=== PATIENT | male | born 1955 | race Caucasian/White ===

== ENCOUNTER 2022-08-05 12:15 | Outpatient (CLI) | payer MEDICARE, OTHER | END 2022-08-05 12:30 | disposition home or self-care (01) | LOC: LAB.N 12:15 | PROVIDERS: ATTEND Registered Nurse | DX: R30.0 Dysuria (principal) | CPT/HCPCS: 87086; 87181 ==

== ENCOUNTER 2023-02-25 16:32 | Emergency (ER) | payer MEDICARE, OTHER ==
[2023-02-25 17:31] LABS: BASOPHILS % (AUTO) 0.3 %; EOSINOPHILS # (AUTO) 0.1 10^3/uL (0.0-0.7); EOSINOPHILS % (AUTO) 2.3 %; HCT - HEMATOCRIT 35.1 % (42.0-52.0); HGB - HEMOGLOBIN 11.9 g/dL (14.0-18.0); LYMPHOCYTES # (AUTO) 0.5 10^3/uL (1.5-3.5); LYMPHOCYTES % (AUTO) 12.3 %; MEAN CORPUSCULAR HEMOGLOBIN 30.7 pg (27.0-31.0); MEAN CORPUSCULAR HGB CONC 33.9 g/dL (32.0-36.0); MEAN CORPUSCULAR VOLUME 90.5 fL (80.0-94.0); MEAN PLATELET VOLUME 11.2 fL (7.4-11.4); MONOCYTES # (AUTO) 0.7 10^3/uL (0.0-1.0); MONOCYTES % (AUTO) 16.3 %; NEUTROPHILS # (AUTO) 2.7 10^3/uL (1.5-6.6); NEUTROPHILS % (AUTO) 68.5 %; PLT - PLATELET COUNT 59 10^3/uL (130-450); RED BLOOD COUNT 3.88 10^6/uL (4.70-6.10); RED CELL DISTRIBUTION WIDTH 15.3 % (12.0-15.0)
[2023-02-25 17:46] LABS: ALBUMIN 3.6 g/dL (3.2-5.5); ALBUMIN/GLOBULIN RATIO 1.5 (1.0-2.2); BILIRUBIN,TOTAL 1.4 mg/dL (0.2-1.0); CALCIUM 9.4 mg/dL (8.5-10.3); CREATININE 0.7 mg/dL (0.6-1.3); POTASSIUM 4.2 mmol/L (3.5-4.5)
[2023-02-25] MEDS ORDERED: SODIUM CHLORIDE 0.9% 1,000 ML IV STA ×2 (18:52)
[2023-02-25 19:09] LABS: BILIRUBIN,URINE NEGATIVE (NEGATIVE); GLUCOSE, URINE (UA) >=1000 mg/dL (NEGATIVE); KETONES,URINE (UA) NEGATIVE (NEGATIVE); LEUKOCYTE ESTERASE, URINE NEGATIVE (NEGATIVE); NITRITE,URINE NEGATIVE (NEGATIVE); OCCULT BLOOD,URINE NEGATIVE (NEGATIVE); PH,URINE 5.5 PH (5.0-7.5); PROTEIN,URINE NEGATIVE (NEGATIVE); UROBILINOGEN,URINE 0.2 (NORMAL) E.U./dL (NORMAL)
[2023-02-25 19:12] LABS: CLARITY,URINE CLEAR (CLEAR)
--- NOTE | 2023-02-25 21:25 | ED Physician Documentation ---
History of Present Illness - Stated complaint Stated Complaint: HIGH BLOOD SUGAR - Chief complaint Chief Complaint: General - History obtained from History obtained from: Patient, Family - Additonal information Additional information: 67-year-old male with history of hemochromatosis, insulin-dependent diabetes, GISELLA presents by private vehicle from home for elevated blood glucose readings. Patient has had elevated glucose measurements for the last 3 to 4 days. Family also states that the patient has seemed "loopy", but do state that he has memory issues at baseline. Patient was previously taken off of insulin after starting the medication Ozempic, however several weeks ago the patient stopped taking Ozempic because he could not tolerate the side effects, and did not restart insulin. also reports concern that patient may have elevated ammonia level. He occasionally gets elevated ammonia due to his hemochromatosis, but he has not been taking his lactulose as prescribed. Review of Systems Constitutional: denies: Fever, Chills GI: denies: Abdominal Pain, Nausea, Vomiting : denies: Dysuria, Frequency, Hesitancy Skin: denies: Rash, Lesions, Abrasion (s) Musculoskeletal: denies: Neck pain, Back pain, Extremity pain, Joint pain Endocrine: reports: Polydypsia, Polyuria. denies: Polyphagia PD PAST MEDICAL HISTORY - Allergies Allergies/Adverse Reactions: Allergies Allergy/AdvReac Type Severity Reaction Status Date / Time Penicillins Allergy Rash Verified 02/25/23 16:49 Sulfa (Sulfonamide Allergy Rash Verified 02/25/23 16:49 Antibiotics) PD ED PE NORMAL - Vitals Vital signs reviewed: Yes - General General: Alert and oriented X 3, No acute distress, Well developed/nourished - HEENT HEENT: Atraumatic - Neck Neck: Supple, no meningeal sign - Cardiac Cardiac: RRR, Strong equal pulses - Respiratory Respiratory: No respiratory distress - Abdomen Abdomen: Soft, Non tender, Non distended - Derm Derm: Normal color, Warm and dry, No rash - Extremities Extremities: No deformity, No tenderness to palpate, Normal ROM s pain - Neuro Neuro: Alert and oriented X 3, spool tender 2-12 intact, No motor deficit, Normal speech - Psych Psych: Normal mood, Normal affect Results - Vitals Vitals: Vital Signs - 24 hr 02/25/23 02/25/23 02/25/23 16:38 19:34 21:00 Temperature 37.5 C Heart Rate 90 79 81 Respiratory 16 18 16 Rate Blood Pressure 131/55 H 132/69 H 144/71 H O2 Saturation 96 97 98 Oxygen O2 Source Room air - Labs Labs: Laboratory Tests 02/25/23 02/25/23 02/25/23 16:44 17:15 17:25 WBC 4.0 L RBC 3.88 L Hgb 11.9 L Hct 35.1 L MCV 90.5 MCH 30.7 MCHC 33.9 RDW 15.3 H Plt Count 59 L MPV 11.2 Neut # (Auto) 2.7 Lymph # (Auto) 0.5 L [place] # (Auto) 0.7 Eos # (Auto) 0.1 Baso # (Auto) 0.0 Absolute Nucleated RBC 0.00 Nucleated RBC % 0.0 Sodium Potassium Chloride Carbon Dioxide Anion Gap BUN Creatinine Estimated GFR (MDRD) Glucose POC Whole Bld Glucose 397 H Calcium Total Bilirubin AST ALT Alkaline Phosphatase Ammonia Total Protein Albumin Globulin Albumin/Globulin Ratio Lipase Urine Color YELLOW Urine Clarity CLEAR Urine pH 5.5 Ur Specific [place] 1.010 Urine Protein NEGATIVE Urine Glucose (UA) >=1000 H Urine Ketones NEGATIVE Urine Occult Blood NEGATIVE Urine Nitrite NEGATIVE Urine Bilirubin NEGATIVE Urine Urobilinogen 0.2 (NORMAL) Ur Leukocyte Esterase NEGATIVE Ur Microscopic Review NOT INDICATED Urine Culture Comments NOT INDICATED 02/25/23 02/25/23 02/25/23 17:25 18:58 21:23 WBC RBC Hgb Hct MCV MCH MCHC RDW Plt Count MPV Neut # (Auto) Lymph # (Auto) [place] # (Auto) Eos # (Auto) Baso # (Auto) Absolute Nucleated RBC Nucleated RBC % Sodium 130 L Potassium 4.2 Chloride 97 L Carbon Dioxide 28 Anion Gap 5.0 L BUN 13 Creatinine 0.7 Estimated GFR (MDRD) 113 Glucose 420 H POC Whole Bld Glucose 249 H Calcium 9.4 Total Bilirubin 1.4 H AST 26 ALT 29 Alkaline Phosphatase 75 Ammonia 34.0 Total Protein 6.0 L Albumin 3.6 Globulin 2.4 Albumin/Globulin Ratio 1.5 Lipase 19 Urine Color Urine Clarity Urine pH Ur Specific [place] Urine Protein Urine Glucose (UA) Urine Ketones Urine Occult Blood Urine Nitrite Urine Bilirubin Urine Urobilinogen Ur Leukocyte Esterase Ur Microscopic Review Urine Culture Comments PD Medical Decision Making - ED course Complexity details: reviewed results, re-evaluated patient, considered differential, d/w patient ED course: Elevated blood glucose readings, possible abnormal behavior noted by family members at home. Patient is currently alert and oriented x3, he endorses that he is not compliant with many of his medications and has been noncompliant with a diabetic diet. Accu-Chek elevated in triage. Laboratory work confirms elevated glucose without anion gap elevation. Urine with glucosuria, no evidence of infection. No elevation in white blood cell count indicate underlying infection. Ammonia level within normal limits. Blood glucose decreased after IV fluids. Patient counseled to restart insulin since he is no longer taking Ozempic. He was encouraged to comply with his nightly CPAP and to take his lactulose as prescribed. Patient has a primary care appointment on Wednesday. He states that he has enough insulin at home to get him through the weekend and does not need a refill. Departure - Departure Disposition: 01 Home, Self Care Clinical Impression: Hyperglycemia, Noncompliance w/medication treatment due to intermit use of medication Condition: Stable Instructions: Blood Sugar Check, Diabetes Carbs Forms: PCP List
[2023-02-25 21:26] VITALS: BP 144/71; O2SAT 98
== END 2023-02-25 21:30 | disposition home or self-care (01) ==
LOC: ED 16:32
DX: E11.65 Type 2 diabetes mellitus with hyperglycemia (principal); Z91.148 Patient's other noncompliance with medication regimen for other reason
CPT/HCPCS: 36415; 80053; 81001; 81003; 82140; 83690; 85025; 87086; 99283

== ENCOUNTER 2024-01-06 13:52 | Emergency (ER) | payer MEDICARE, OTHER ==
[2024-01-06 14:14] VITALS: O2SAT 97
[2024-01-06 14:27] LABS: BILIRUBIN,URINE NEGATIVE (NEGATIVE); GLUCOSE, URINE (UA) >=1000 mg/dL (NEGATIVE); KETONES,URINE (UA) TRACE mg/dL (NEGATIVE); LEUKOCYTE ESTERASE, URINE NEGATIVE (NEGATIVE); NITRITE,URINE NEGATIVE (NEGATIVE); OCCULT BLOOD,URINE NEGATIVE (NEGATIVE); PROTEIN,URINE NEGATIVE (NEGATIVE); UROBILINOGEN,URINE 0.2 (NORMAL) E.U./dL (NORMAL)
[2024-01-06 14:28] LABS: CLARITY,URINE CLEAR (CLEAR)
[2024-01-06 14:37] LABS: BASOPHILS % (AUTO) 0.5 %; EOSINOPHILS # (AUTO) 0.1 10^3/uL (0.0-0.7); EOSINOPHILS % (AUTO) 2.2 %; HGB - HEMOGLOBIN 11.9 g/dL (14.0-18.0); LYMPHOCYTES # (AUTO) 0.5 10^3/uL (1.5-3.5); LYMPHOCYTES % (AUTO) 14.5 %; MEAN CORPUSCULAR HEMOGLOBIN 29.4 pg (27.0-31.0); MEAN CORPUSCULAR HGB CONC 32.2 g/dL (32.0-36.0); MEAN CORPUSCULAR VOLUME 91.4 fL (80.0-94.0); MEAN PLATELET VOLUME 11.9 fL (7.4-11.4); MONOCYTES # (AUTO) 0.5 10^3/uL (0.0-1.0); MONOCYTES % (AUTO) 12.9 %; NEUTROPHILS # (AUTO) 2.5 10^3/uL (1.5-6.6); NEUTROPHILS % (AUTO) 69.6 %; PLT - PLATELET COUNT 57 10^3/uL (130-450); RED BLOOD COUNT 4.05 10^6/uL (4.70-6.10); RED CELL DISTRIBUTION WIDTH 17.5 % (12.0-15.0); WHITE BLOOD COUNT 3.7 x10^3/uL (4.8-10.8)
--- NOTE | 2024-01-06 14:46 | ED Physician Documentation ---
PD HPI ALTERED MENTAL STATUS - Stated complaint Stated Complaint: AMS - Chief complaint Chief Complaint: Neuro - Additional information Additional information: 68 yo endstage liver failure, QUIÑONEZ, COPD, mild cognitive impairment, T2DM well controlled, today BG 355 Which is a lot higher for him than normal. is concerned that patient has been having some altered mental status and symptoms that are very similar to sundowning. At nighttime she says in the dark has been seeing things that are not there is such as a cougar in the backyard he has been having increased agitation. His primary care provider and his GI doctor who manages his end-stage liver disease is Dr. Tiffany Bruce and he also has a follow-up appointment with neurology in a couple weeks for his mild cognitive impairment. He has been having some sundowning symptoms now for a few weeks but his 's sister is dying and is being transitioned to hospice and is going to be flying out soon and just wanted to make sure that he was not having anything acute prior to leaving him. Patient does have a son who will be staying with him during this time of him being gone. Patient's also reports that he does not sleep at night he sleeps maybe 1 hour here 1 hour there but his sleep has gotten worse over the last few weeks. PD PAST MEDICAL HISTORY - Past Medical History Past Medical History: Yes Endocrine/Autoimmune: Type 2 diabetes GI: Other Other Past Medical History: End stage liver disease, hemotochromiza - Past Surgical History Past Surgical History: Yes General: Other Ortho: Carpal Tunnel surgery - Present Medications Home Medications: Ambulatory Orders Medication Instructions Recorded Confirmed Atorvastatin Calcium [Lipitor] 80 mg PO DAILY 01/06/24 01/06/24 DULoxetine [Cymbalta] 30 mg PO DAILY 01/06/24 01/06/24 Empagliflozin [Jardiance] 25 mg PO DAILY 01/06/24 01/06/24 Insulin Glargine [Lantus Solostar] 52 unit SUBQ BID 01/06/24 01/06/24 Lisinopril [Zestril] 5 mg PO DAILY 01/06/24 01/06/24 Omeprazole 20 mg PO DAILY 01/06/24 01/06/24 Propranolol [Inderal] 20 mg PO BID 01/06/24 01/06/24 QUEtiapine [SEROquel] 25 mg PO QPM #20 tablet 01/06/24 Tamsulosin [Flomax] 0.8 mg PO DAILY 01/06/24 01/06/24 Tiotropium Br/Olodaterol HCl 2.5 gm IH DAILY 01/06/24 01/06/24 [Stiolto Respimat Inhaler (10)] metFORMIN [Glucophage] 1,000 mg PO BIDWM 01/06/24 01/06/24 methocarbamoL [Methocarbamol] 500 mg PO TID 01/06/24 01/06/24 rifAXIMin [Xifaxan] 550 mg PO BID 01/06/24 01/06/24 traMADol [Ultram] 50 mg PO Q4-6H 01/06/24 01/06/24 - Allergies Allergies/Adverse Reactions: Allergies Allergy/AdvReac Type Severity Reaction Status Date / Time Penicillins Allergy Rash Verified 02/25/23 16:49 Sulfa (Sulfonamide Allergy Rash Verified 02/25/23 16:49 Antibiotics) - Social History Does the pt smoke?: No Smoking Status: Current some day smoker Does the pt drink ETOH?: No Substance Use and Type: Marijuana PD ED PE NORMAL - Vitals Vital signs reviewed: Yes - General General: Alert and oriented X 3, No acute distress, Well developed/nourished - HEENT HEENT: Atraumatic, PERRL - Cardiac Cardiac: RRR - Respiratory Respiratory: No respiratory distress, Clear bilaterally - Abdomen Abdomen: Normal bowel sounds, Soft, Non tender, Other (No ascites) - Back Back: No CVA TTP - Derm Derm: Normal color, Warm and dry, No rash - Extremities Extremities: No edema, No calf tenderness / cord - Neuro Neuro: Alert and oriented X 3, director graphics 2-12 intact, No motor deficit, No sensory deficit, Normal speech Eye Opening: Spontaneous Motor: Obeys Commands Verbal: Oriented GCS Score: 15 - Psych Psych: Normal mood, Normal affect Results - Vitals Vitals: Vital Signs - 24 hr 01/06/24 01/06/24 01/06/24 14:06 14:25 16:41 Temperature 36.8 C Heart Rate 118 H 115 H 95 Respiratory 16 26 H 20 Rate Blood Pressure 122/81 H 119/61 139/67 H O2 Saturation 97 97 97 Oxygen O2 Source Room air - Labs Labs: Laboratory Tests 09/09/2301/06/24 01/06/24 14:15 14:30 14:30 WBC 3.7 L RBC 4.05 L Hgb 11.9 L Hct 37.0 L MCV 91.4 MCH 29.4 MCHC 32.2 RDW 17.5 H Plt Count 57 L MPV 11.9 H Neut # (Auto) 2.5 Lymph # (Auto) 0.5 L [place] # (Auto) 0.5 Eos # (Auto) 0.1 Baso # (Auto) 0.0 Absolute Nucleated RBC 0.00 Nucleated RBC % 0.0 Sodium 134 L Potassium 4.2 Chloride 103 Carbon Dioxide 19 L Anion Gap 12.0 BUN 16 Creatinine 0.8 Estimated GFR (MDRD) 97 Glucose 320 H Calcium 9.8 Total Bilirubin 1.2 H AST 29 ALT 26 Alkaline Phosphatase 62 Ammonia Total Protein 6.2 L Albumin 3.7 Globulin 2.5 Albumin/Globulin Ratio 1.5 Lipase 18 Urine Color YELLOW Urine Clarity CLEAR Urine pH 6.0 Ur Specific [place] 1.015 Urine Protein NEGATIVE Urine Glucose (UA) >=1000 H Urine Ketones TRACE Urine Occult Blood NEGATIVE Urine Nitrite NEGATIVE Urine Bilirubin NEGATIVE Urine Urobilinogen 0.2 (NORMAL) Ur Leukocyte Esterase NEGATIVE Ur Microscopic Review NOT INDICATED Urine Culture Comments NOT INDICATED 01/06/24 14:30 WBC RBC Hgb Hct MCV MCH MCHC RDW Plt Count MPV Neut # (Auto) Lymph # (Auto) [place] # (Auto) Eos # (Auto) Baso # (Auto) Absolute Nucleated RBC Nucleated RBC % Sodium Potassium Chloride Carbon Dioxide Anion Gap BUN Creatinine Estimated GFR (MDRD) Glucose Calcium Total Bilirubin AST ALT Alkaline Phosphatase Ammonia 60.7 Total Protein Albumin Globulin Albumin/Globulin Ratio Lipase Urine Color Urine Clarity Urine pH Ur Specific [place] Urine Protein Urine Glucose (UA) Urine Ketones Urine Occult Blood Urine Nitrite Urine Bilirubin Urine Urobilinogen Ur Leukocyte Esterase Ur Microscopic Review Urine Culture Comments - Rads (name of study) Head CT without Relevant Findings:: Final report received, EMP independent interpretation of test, Other (No acute intracranial hemorrhages or abnormalities.) PD Medical Decision Making - ED course ED course: 68-year-old male presents emergency department for concerns of altered mental status. For myself patient is alert and oriented x 4 but reports that most of the altered mental status symptoms happen at nighttime. Head CT was complete for further evaluation no intracranial hemorrhages or abnormalities were found. He has no leukocytosis he has chronic leukopenia, white count 3.7 mild anemia, hemoglobin 11.9 but this appears to be at patient's baseline bilirubin slightly elevated at 1.2 normal ammonia level and slightly elevated glucose at 320 but manages patient's blood sugars. Urinalysis does not show any acute signs of infection no leukocytes or WBCs. I believe that patient's worsening symptoms are most likely due to combination of mild cognitive impairment, sundowning, end-stage liver failure, and insomnia. Patient was given a prescription of Seroquel to see if this could help with sleep and was taught how to take this tonight and they are told to follow-up with primary care provider soon as possible for Seroquel refill and further evaluation of patient's signs and symptoms of sundowning. All questions answered patient is safe for discharge at this time. Departure - Departure Disposition: 01 Home, Self Care Clinical Impression: Confusion, Insomnia Instructions: ED Insomnia Prescriptions: QUEtiapine [SEROquel] 25 mg PO QPM #20 tablet Comments: Thank you for trusting us with your care. We have completed a head CT as well as labs we are not seeing any acute abnormalities or findings at this point in time. I have sent a prescription of Seroquel to help you sleep at nighttime you can take this 1 hour prior to going to bed if after 1 hour you are still wide- awake you can take 1 more dose. Please follow-up with primary care provider for further evaluation about today's ER visit Forms: PCP List Discharge Date/Time: 01/06/24 17:01
[2024-01-06 14:51] LABS: ALBUMIN 3.7 g/dL (3.2-5.5); ALBUMIN/GLOBULIN RATIO 1.5 (1.0-2.2); BILIRUBIN,TOTAL 1.2 mg/dL (0.2-1.0); CALCIUM 9.8 mg/dL (8.5-10.3); CREATININE 0.8 mg/dL (0.6-1.3); POTASSIUM 4.2 mmol/L (3.5-4.5); TOTAL PROTEIN 6.2 g/dL (6.4-8.9)
--- NOTE | 2024-01-06 16:12 | CT Report ---
PROCEDURE: Head WO INDICATIONS: AMS TECHNIQUE: Noncontrast 4.5 mm thick angled axial sections acquired from the foramen magnum to the vertex. For r adiation dose reduction, the following was used: automated exposure control, adjustment of mA and/or kV according to patient size. COMPARISON: None. FINDINGS: Image quality: Excellent. CSF spaces: Basal cisterns are patent. No extra-axial fluid collections. Ventricles are normal in size and shape. Brain: No midline shift. No intracranial masses or hemorrhage. [place]-white matter interface is norm al. Intracranial carotid calcifications. Age-related volume loss and mild, age-appropriate small vess el ischemic change. Skull and face: Calvarium and visualized facial bones are intact, without suspicious lesions. Metal fragment superficial to left frontal bone. Sinuses: Visualized sinuses and mastoids are clear. IMPRESSION: No acute intracranial pathology. Reviewed by: Elliot Gonsalez MD on 01/06/2024 4:11 PM PDT Approved by: Elliot Gonsalez MD on 01/06/2024 4:11 PM PDT Station ID: [id number]
[2024-01-06 16:52] VITALS: BP 139/67
== END 2024-01-06 17:01 | disposition home or self-care (01) ==
LOC: ED 13:52
DX: R41.0 Disorientation, unspecified (principal); G47.00 Insomnia, unspecified; D72.819 Decreased white blood cell count, unspecified; E11.9 Type 2 diabetes mellitus without complications; K72.10 Chronic hepatic failure without coma; F17.200 Nicotine dependence, unspecified, uncomplicated; Z79.899 Other long term (current) drug therapy; Z79.84 Long term (current) use of oral hypoglycemic drugs; Z79.4 Long term (current) use of insulin
CPT/HCPCS: 36415; 80053; 81001; 81003; 82140; 83690; 85025; 87086; 99284